=== PATIENT | male | born 1990 | race Caucasian/White ===

== ENCOUNTER 2016-06-16 16:51 | Emergency (ER) | payer OTHER ==
[2016-06-16] MEDS ORDERED: NS 1,000 ML IV ONE (16:57)
[2016-06-16 16:58] VITALS: RESP 16; O2SAT 98
--- NOTE | 2016-06-16 17:02 | EDPHY ---
H & P Stated Complaint: 20 FT FALL, HEAD LAC, LTA HPI/ROS: CHIEF COMPLAINT: Head laceration HISTORY OF PRESENT ILLNESS: Patient is a 26-year-old healthy man who fell rock climbing. He fell approximately 20 feet but bounced off of the rock with his feet in the middle. He landed on his back and head and has a laceration to the posterior aspect of his head. He was not wearing helmet. He denies neck pain or back pain. He is moving all extremities without difficulty. He denies chest pain, abdominal pain or pelvic pain. REVIEW OF SYSTEMS: Constitutional: denies: chills, fever, recent illness, recent injury EENTM: denies: blurred vision, double vision, nose congestion Respiratory: denies: cough, shortness of breath Cardiac: denies: chest pain, irregular heart rate, lightheadedness, palpitations Gastrointestinal/Abdominal: denies: abdominal pain, diarrhea, nausea, vomiting, blood streaked stools Genitourinary: denies: dysuria, frequency, hematuria, pain Musculoskeletal: denies: joint pain, muscle pain Skin: See HPI Neurological: denies: headache, numbness, paresthesia, tingling, dizziness, weakness Hematologic/Lymphatic: denies: blood clots, easy bleeding, easy bruising Immunologic/allergic: denies: HIV/AIDS, transplant Nursing assessment reviewed Vital signs reviewed normal Patient is alert not anxious or lethargic and in no distress c-collar in place, cervical collar cleared by me on arrival HEAD: 10 cm laceration parietal/occipital region, vertical. Full-thickness, no raccoon eyes, no Alas sign. NECK: is nontender and has painless range of motion, trachea is midline, NEXUS criteria negative (no midline tenderness no distracting injury no altered mental status no recent alcohol and no focal neuro deficits EYES: pupils equal round reactive to light and accommodating, extraocular muscles are intact no palsy or entrapment, no subconjunctival hemorrhage ENT: Normal external inspection, airway intact, no dental or oral injuries, no clotted nasal blood, no septal hematoma, no hemotympanum CARDIOVASCULAR: heart sounds normal, not tachycardic or bradycardic, Chest is non-tender no rib tenderness no palpable fracture, no crepitus, no subcutaneous emphysema RESPIRATORY: no splinting, no paradoxical movements, gross sounds normal, no wheezes no rales no rhonchi, no respiratory distress ABDOMEN: Abdomen is nontender in all 4 quadrants no guarding no rebound, no distention, no hernias, no masses or bruits. GENITAL/RECTAL: Normal external inspection, Stable pelvis NEUROLOGIC/PSYCH: Oriented x3, cranial nerves normal as assessed, face symmetrical, sensation normal, motor grossly normal, not perseverating, cranial nerves II through XII intact normal reflexes [place] Coma score: 15 SKIN: Intact, warm, dry, no ecchymosis, no lacerations, nondiaphoretic. BACK: No CVA tenderness, no vertebral point tenderness, no muscle spasm normal range of motion EXTREMITIES: Atraumatic, pelvis stable, nontender able to bear weight, no pulse deficit, normal range of motion, normal color and temperature Source: Patient Exam Limitations: No limitations - Personal History Current Tetanus/Diphtheria Vaccine: No - Medical/Surgical History Hx Asthma: No Hx Chronic Respiratory Disease: No Hx Diabetes: No Hx Cardiac Disease: No Hx Renal Disease: No Hx Cirrhosis: No Hx Alcoholism: No Hx HIV/AIDS: No Hx Splenectomy or Spleen Trauma: No - Family History Significant Family History: No pertinent family hx - Social History Smoking Status: Never smoked Alcohol Use: Sober Drug Use: None Constitutional: Initial Vital Signs Temperature (C) 36.5 C 06/16/16 16:57 Heart Rate 76 06/16/16 16:57 Respiratory Rate 16 06/16/16 16:57 Blood Pressure 112/92 H 06/16/16 16:57 O2 Sat (%) 98 06/16/16 16:57 O2 Delivery Mode Room Air Allergies/Adverse Reactions: No Known Allergies Allergy (Unverified 06/16/16 16:57) Home Medications: Medication Instructions Recorded Hydrocodone/APAP 5/325 [Sherman 1 - 2 each PO Q4 PRN #14 tab 06/16/16 5/325] Medical Decision Making - Diagnostics Imaging: Results: CT scan of the head and cervical spine was obtained. The results of the study are negative for intracranial injury or fracture. The study was read by Dr. nieves. I viewed the images myself on the PACS system. Procedures: Procedure: Laceration repair. Verbal consent was obtained from the patient. The 10 cm scalp laceration was anesthetized with 0.5% bupivacaine with epinephrine locally infiltrated. The wound was irrigated copiously according to protocol, draped and explored to its base. It was approximately 1 cm deep. There were no deep structures involved no galea laceration. No tendon, nerve, or vascular injury was identified when explored. No foreign body was identified. The wound was repaired with 5 sutures 4.0 Prolene and then 24 arsalan. The wound repair was complex. The procedure was performed by myself. A dressing was then placed with sterile gauze and bacitracin. ED Course/Re-evaluation: Patient tolerated wound repair well. He is happy with the results and is relieved with CT scans. He declines further workup or testing at this time and is eager to go home. Differential Diagnosis: Partial list of the Differential diagnosis considered include but were not limited to; scalp laceration, intracranial injury, concussion and although unlikely based on the history and physical exam, I also considered neck injury, fracture, extremity injury. I discussed these differential diagnoses and the plan with the patient as well as the usual and expected course. The patient understands that the diagnosis is provisional and that in medicine we are not always correct and that further workup is often warranted. Usual and customary warnings were given. All of the patient's questions were answered. The patient was instructed to return to the emergency department should the symptoms at all worsen or return, otherwise to followup with the physician as we discussed. - Data Points Laboratory Results: Laboratory Results 06/16/16 17:11 06/16/16 17:11 06/16/16 06/16/16 17:11 16:51 WBC 12.34 H 10^3/uL (3.80-9.50) RBC 5.14 10^6/uL (4.40-6.38) Hgb 16.8 g/dL (13.7-17.5) POC Hgb 16.0 gm/dL (14.5-17.3) Hct 45.3 % (40.0-51.0) POC Hct 47 % (42.8-50.6) MCV 88.1 fL (81.5-99.8) MCH 32.7 pg (27.9-34.1) MCHC 37.1 H g/dL (32.4-36.7) RDW 13.2 % (11.5-15.2) Plt Count 228 10^3/uL (150-400) MPV 9.8 fL (8.7-11.7) Neut % (Auto) 75.6 H % (39.3-74.2) Lymph % (Auto) 18.6 % (15.0-45.0) [facility] % (Auto) 4.1 L % (4.5-13.0) Eos % (Auto) 0.2 L % (0.6-7.6) Baso % (Auto) 0.5 % (0.3-1.7) Nucleat RBC Rel Count 0.0 % (0.0-0.2) Absolute Neuts (auto) 9.33 H 10^3/uL (1.70-6.50) Absolute Lymphs (auto) 2.29 10^3/uL (1.00-3.00) Absolute Monos (auto) 0.51 10^3/uL (0.30-0.80) Absolute Eos (auto) 0.03 10^3/uL (0.03-0.40) Absolute Basos (auto) 0.06 10^3/uL (0.02-0.10) Absolute Nucleated RBC 0.00 10^3/uL (0-0.01) Immature Gran % 1.0 % (0.0-1.1) Immature Gran # 0.12 H 10^3/uL (0.00-0.10) PT 13.7 SEC (12.0-15.0) INR 1.06 (0.83-1.16) APTT 25.2 SEC (23.0-38.0) POC Sodium 143 mEq/L (134-144) Sodium 142 mEq/L (134-144) POC Potassium 4.2 mEq/L (3.3-5.0) Potassium 4.6 mEq/L (3.5-5.2) POC Chloride 103 mEq/L (96-108) Chloride 103 mEq/L (97-110) Carbon Dioxide 29 mEq/l (22-31) Anion Gap 10 mEq/L (8-16) POC BUN 29 H mg/dL (7-23) BUN 27 H mg/dL (7-23) Creatinine 1.3 mg/dL (0.7-1.3) POC Creatinine 1.4 mg/dL (0.8-1.5) Estimated GFR > 60 Glucose 94 mg/dL (70-100) POC Glucose 101 H mg/dL (70-100) Calcium 10.0 mg/dL (8.5-10.4) Ethyl Alcohol < 10 mg/dL (0-10) Medications Given: Discontinued Medications Acetaminophen/Hydrocodone Bitart (Sherman 5/325mg Prepack#6) 1 btl TAKEHOME EDNOW ONE Stop: 06/16/16 18:50 Last Admin: 06/16/16 18:54 Dose: 1 btl Diphtheria/Tetanus/Acell Pertussis (Boostrix) 0.5 ml IM .ONCE ONE Stop: 06/16/16 17:32 Last Admin: 06/16/16 17:34 Dose: 0.5 ml Sodium Chloride (Ns) 1,000 mls @ 0 mls/hr IV EDNOW ONE PRN Reason: Wide Open Stop: 06/16/16 16:58 Last Admin: 06/16/16 17:14 Dose: 1,000 mls Point of Care Test Results: 06/16/16 16:51 POC Sodium 143 POC Potassium 4.2 POC Chloride 103 POC BUN 29 H POC Creatinine 1.4 POC Glucose 101 H Departure - Departure Disposition: Home, Routine, Self-Care Clinical Impression: Scalp laceration Qualifiers: Encounter type: initial encounter Qualifier Code: (S01.01XA) Laceration without foreign body of scalp, initial encounter Condition: Fair Instructions: Laceration (ED), Care For Your Stitches (ED), Staple Care (ED) Referrals: Tab Feng MD [Medical Doctor] - As per Instructions Prescriptions: Hydrocodone/APAP 5/325 [Sherman 5/325] 1 - 2 each PO Q4 PRN #14 tab PRN Reason: Pain, Mild
[2016-06-16 17:14] LABS: ABSOLUTE IMMATURE GRANULOCYTES 0.12 10^3/uL (0.00-0.10); ADD DIFF? NO; ADD MORPH? NO; ADD SCAN? NO; ATYPICAL LYMPHOCYTE FLAG 0 (0-99); FRAGMENT RBC FLAG 0 (0-99); HEMATOCRIT 45.3 % (40.0-51.0); HEMOGLOBIN 16.8 g/dL (13.7-17.5); LEFT SHIFT FLG 10 (0-99); LIPEMIA HEMOLYSIS FLAG 90 (0-99); MEAN CELL HEMOGLOBIN 32.7 pg (27.9-34.1); MEAN CELL HEMOGLOBIN CONCENTR. 37.1 g/dL (32.4-36.7); MEAN CELL VOLUME 88.1 fL (81.5-99.8); MEAN PLATELET VOLUME 9.8 fL (8.7-11.7); PLATELET CLUMPS FLAG 0 (0-99); PLATELET COUNT 228 10^3/uL (150-400); RED BLOOD CELL COUNT 5.14 10^6/uL (4.40-6.38); RED CELL DISTRIBUTION WIDTH 13.2 % (11.5-15.2)
[2016-06-16 17:22] LABS: INR 1.06 (0.83-1.16); PROTIME(PATIENT) 13.7 SEC (12.0-15.0)
[2016-06-16 17:23] LABS: APTT 25.2 SEC (23.0-38.0)
[2016-06-16] MEDS ORDERED: TDAP ADULT 0.5 ML INJ (BOOSTRIX) IM ONE (17:31)
[2016-06-16 17:46] LABS: ANION GAP 10 mEq/L (8-16); CARBON DIOXIDE 29 mEq/l (22-31); CHLORIDE 103 mEq/L (97-110); CREATININE 1.3 mg/dL (0.7-1.3); ETHANOL SERUM < 10 mg/dL (0-10); GLOMERULAR FILTRATION RATE > 60; GLUCOSE 94 mg/dL (70-100); POTASSIUM 4.6 mEq/L (3.5-5.2); SODIUM 142 mEq/L (134-144)
[2016-06-16 18:47] VITALS: BP 132/85; PULSE 84; TEMP 97.9
[2016-06-16] MEDS ORDERED: HYDROCOD/APAP 5/325 PREPACK#6 BTL TAKEHOME ONE (18:49)
--- NOTE | 2016-06-16 19:50 | CT ---
CT Cervical Spine June 16, 2016 at 1711 Hours Indication: Trauma. Neck pain. Comparison: None. Technique: 1.25-mm thick axial collimated slices were obtained from the occiput through superior endp late of T2. The data was reconstructed in the sagittal and coronal plane. Both soft tissue and bone w indows were reviewed. Dose reduction techniques were utilized. Findings: The occiput through T2 is anatomically aligned. No acute fracture or soft tissue swelling. Disk heights are well preserved. The lung apices are clear. Impression: 1. No acute fracture or soft tissue swelling. 2. If the patient has persistent pain or neurologic deficits, consider cervical spine MRI. Comment: Case was discussed with Dr. Saleh at 1720 hours on June 16, 2016.
--- NOTE | 2016-06-16 19:52 | CT ---
CT Head (Without Contrast) June 16, 2016 at 1711 Hours Indication: Fall. Laceration. Technique: Standard noncontrast head CT protocol utilizing 5 mm thick collimated slices and field of view of 23 cm. Dose reduction techniques were utilized. Findings: No intracranial hemorrhage, contusion, swelling, or extraaxial fluid collection. The ventri cles are normal caliber and midline. The valente and white matter has normal attenuation. No acute skull or facial fracture. A high left parietal scalp laceration is present. No retained foreign body or he matoma. Impression: 1. Left parietal scalp laceration. 2. No acute fracture or intracranial hemorrhage. Comment: Case was discussed with Dr. Saleh at 1720 hours on June 16, 2016.
== END 2016-06-16 18:55 | disposition home or self-care (01) ==
LOC: EDBD 16:51
PROC: 0HQ0XZZ Repair Scalp Skin, External Approach (ICD-10-PCS; principal; 2016-06-16)
DX: S01.01XA Laceration without foreign body of scalp, initial encounter (principal); Z23 Encounter for immunization; W17.89XA Other fall from one level to another, initial encounter; Y99.8 Other external cause status; Y93.31 Activity, mountain climbing, rock climbing and wall climbing
CPT/HCPCS: 82947-QW; G0480